=== PATIENT | male | born 1965 | race Hispanic/Latino ===

== ENCOUNTER → 2021-03-12 12:28 | Outpatient (CLI) | payer OTHER, MEDICAID, SELFPAY ==
--- NOTE | 2021-03-12 | DI.US.S_ITS ---
PROCEDURE: US ABDOMEN LIMITED INDICATIONS: HEP C POST TREATMENT TECHNIQUE: Real-time focused scanning was performed of the abdomen, with image documentation. COMPARISON: [facility], CT, ABDOMEN/PELVIS WITH CONTRAST, 03/10/2015, 16:40. [facility], US, US ABDOMEN COMPLETE, 12/15/2018, 10:08. FINDINGS: The liver is normal in size and demonstrates no focal lesions. The liver demonstrates normal overall echogenicity. IMPRESSION: Liver ultrasound within normal limits. Dictated by: Eduard Ortiz M.D. on 03/12/2021 at 13:39 Approved by: Eduard Ortiz M.D. on 03/12/2021 at 13:40
== END ==
PROVIDERS: PCP Nurse Practitioner; Referring Provider Nurse Practitioner; Visit Provider Nurse Practitioner
DX: B18.2 Chronic viral hepatitis C (principal)
CPT/HCPCS: 76705

== ENCOUNTER 2022-06-14 10:36 | Emergency (ER) | payer OTHER, MEDICAID, SELFPAY ==
[2022-06-14 10:49] VITALS: BP 141/81; PULSE 88; RESP 14; TEMP 36.7; O2SAT 100; BMI 30.9
--- NOTE | 2022-06-14 10:55 | DI.RAD.S_ITS ---
PROCEDURE: XR CHEST 1V INDICATIONS: chest pain TECHNIQUE: One view of the chest was acquired. COMPARISON: None. FINDINGS: Surgical changes and devices: None. Lungs and pleura: Patchy left basilar atelectasis. No pleural effusions or pneumothorax. Eventration of right hemidiaphragm. Mediastinum: Mediastinal contours appear normal. Heart size is normal. Bones and chest wall: No suspicious bony lesions. Overlying soft tissues appear unremarkable. IMPRESSION: Patchy left basilar atelectasis. Dictated by: Huy Cheng M.D. on 06/14/2022 at 11:31 Approved by: Huy Cheng M.D. on 06/14/2022 at 11:32
[2022-06-14 11:13] LABS: Add Manual Diff / Slide Review NO; Basophils Absolute Auto 0 /uL (0-100); Basophils Percent Auto 0.3 % (0-2); Eosinophils Absolute Auto 100 /uL (0-450); Eosinophils Percent Auto 2.1 % (2-4); Hematocrit 33.6 % (41-53); Hemoglobin 11.5 g/dL (13.5-17.5); Lymphocytes Absolute Auto 2000 /uL (1100-4500); Lymphocytes Percent Auto 32.9 % (25-40); Mean Corpuscular HGB Conc 34.2 % (30-36); Mean Corpuscular Hemoglobin 31.4 PG (26-34); Mean Corpuscular Volume 91.7 fL (80-100); Monocytes Absolute Auto 500 /uL (0-900); Monocytes Percent Auto 8.8 % (3-14); Neutrophils Absolute Auto 3400 /uL (1500-7000); Neutrophils Percent Auto 55.9 % (50-75); Platelet Count 211 X10^3/uL (150-400); Red Blood Cell Count 3.67 X10^6/uL (4.5-5.9); Red Cell Distribution Width 13.8 % (11.6-14.8); White Blood Cell Count 6.1 X10^3/uL (4.5-11.0)
[2022-06-14 11:27] LABS: Alanine Aminotransferase 30 IU/L (<50); Albumin 3.8 g/dL (3.5-5.0); Albumin Globulin Ratio 0.9 (1.0-2.8); Alkaline Phosphatase 91 U/L (38-126); Aspartate Aminotransferase 53 IU/L (17-59); BUN Creatinine Ratio 15.9 (6-22); Bilirubin Total 0.7 mg/dL (0.2-1.3); Blood Urea Nitrogen 13 mg/dL (9-20); Calcium 8.4 mg/dL (8.4-10.2); Carbon Dioxide 23 mmol/L (22-32); Chloride 104 mmol/L (98-107); Creatine Kinase 236 U/L (55-170); Estimated Glomerular Filt Rate > 60 mL/min (>60); Globulin 4.2 g/dL (1.7-4.1); Glucose 163 mg/dL (70-100); Lipase 16 U/L (23-300); Magnesium 1.9 mg/dL (1.6-2.3); Potassium 4.6 mmol/L (3.4-5.1); Sodium 140 mmol/L (137-145)
[2022-06-14 11:31] LABS: HEMOLYSIS 74 (0-50)
[2022-06-14 11:38] LABS: Troponin I < 0.012 ng/mL (0.01-0.034)
[2022-06-14 11:40] LABS: NT-proBNP (BNP-Adult 18+) 80 pg/mL (<125)
[2022-06-14 13:08] LABS: Influenza A - CEPHEID Flu A NEGATIVE (NEGATIVE); Influenza B - CEPHEID Flu B NEGATIVE (NEGATIVE); Respiratory Syncytial Virus Negative (Negative)
[2022-06-14 13:32] LABS: COVID-19 CEPHEID 4-PLEX PCR Negative (Negative)
[2022-06-14 14:17] LABS: Prothrombin Time 11.2 SECONDS (10.1-12.7)
[2022-06-14 14:19] LABS: D Dimer 971 ng/ml (<500)
[2022-06-14 14:20] LABS: PTT Partial Thromboplastin Tim 26 SECONDS (26-36)
[2022-06-14 14:27] VITALS: BP 134/76; PULSE 83; O2SAT 98
--- NOTE | 2022-06-14 14:49 | ED_ITS ---
HPI - Extremity Problem General Chief complaint: Extremity Problem,Nontraumatic Stated complaint: Woke up with both legs hurting Time Seen by Provider: 06/14/22 11:06 Source: patient Mode of arrival: Ambulatory History of Present Illness HPI Narrative: Patient is a 57-year-old male history of hypertension on amlodipine and lisinopril presenting today with bilateral lower extremities swelling. He says it has been ongoing for the last 2 days. He denies fever chills no chest pain or shortness of breath. 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 He has pain there mildly red but no significant injury. No prior history of congestive heart failure. Related Data Previous Rx's Medication Instructions Recorded furosemide 20 mg tablet (Lasix) 20 mg PO DAILY #5 tabs 06/14/22 Allergies Allergy/AdvReac Type Severity Reaction Status Date / Time No Known Drug Allergies Allergy Verified 06/14/22 10:55 Review of Systems Review of Systems Narrative: GENERAL: Denies chills,fever HEENT: Denies throat pain RESPIRATORY: Denies dyspnea, cough, wheezing CARDIOVASCULAR: Denies chest pain, palpitations GASTROINTESTINAL: Denies nausea, vomiting MUSCULOSKELETAL: See HPI SKIN: No rash, no laceration, no pruritus NEUROLOGIC: Denies weakness, dizziness, headache, numbness 8 point review of systems is negative except for those stated above and HPI Patient History Social History Smoking Status: Current every day smoker Smoking Status: Current every day smoker alcohol intake frequency: 0-2 drinks per day Substance Use Type: former substance user Exam Initial Vital Signs Initial Vital Signs: Vital Signs Temperature 98.1 F 06/14/22 10:49 Pulse Rate 88 06/14/22 10:49 Respiratory Rate 14 06/14/22 10:49 Blood Pressure 141/81 H 06/14/22 10:49 Pulse Oximetry 100 06/14/22 10:49 Oxygen Delivery Method 06/14/22 10:49 GENERAL: Alert pleasant 57-year-old male HEENT: Head atraumatic,EOMI, pupils reactive, face symmetric, moist mucous membranes CARDIOVASCULAR: Regular rate and rhythm without murmurs, rubs or gallops. RESPIRATORY: Breath sounds equal bilaterally, no wheezes rales or rhonchi. ABDOMEN: Soft, nontender. Normoactive bowel sounds all 4 quadrants. No guarding or rebound. EXTREMITIES: Normal range of motion, no clubbing . +2 pitting edema Neurovascularly intact NEUROLOGICAL: Alert and oriented x4. SKIN: Warm, dry, no laceration, no petechiae, no rashes or lesions. Minimally erythematous lower extremities Course Orders Ordered: Discontinued Medications Labetalol HCl (Labetalol 20 Mg/4 Ml Syringe) 20 mg IV NOW ONE Stop: 06/14/22 15:54 Last Admin: 06/14/22 16:01 Dose: Not Given Documented By: LAYLA Vital Signs Vital signs: Vital Signs - 8 hr 06/14/22 10:49 06/14/22 14:27 Temperature 98.1 F Pulse Rate 88 83 Respiratory Rate 14 Blood Pressure 141/81 H 134/76 Pulse Oximetry 100 98 Oxygen Delivery Method Room Air Room Air MDM - Extremity (Nontraumatic) Lab Data Result diagrams: 06/14/22 11:04 06/14/22 11:04 Labs: Lab Results 06/14/22 06/14/22 06/14/22 Range/Units 11:04 11:04 11:04 WBC 6.1 (4.5-11.0) X10^3/uL RBC 3.67 L (4.5-5.9) X10^6/uL Hgb 11.5 L (13.5-17.5) g/dL Hct 33.6 L (41-53) % MCV 91.7 (80-100) fL MCH 31.4 (26-34) PG MCHC 34.2 (30-36) % RDW 13.8 (11.6-14.8) % Plt Count 211 (150-400) X10^3/uL Neut % (Auto) 55.9 (50-75) % Lymph % (Auto) 32.9 (25-40) % Republic % (Auto) 8.8 (3-14) % Eos % (Auto) 2.1 (2-4) % Baso % (Auto) 0.3 (0-2) % Neut # (Auto) 3400 (9978-5367) /uL Lymph # (Auto) 2000 (3190-2534) /uL Republic # (Auto) 500 (0-900) /uL Eos # (Auto) 100 (0-450) /uL Baso # (Auto) 0 (0-100) /uL PT (10.1-12.7) SECONDS INR (0.9-1.3) APTT (26-36) SECONDS D-Dimer (<500) ng/ml Sodium 140 (137-145) mmol/L Potassium 4.6 (3.4-5.1) mmol/L Chloride 104 (98-107) mmol/L Carbon Dioxide 23 (22-32) mmol/L BUN 13 (9-20) mg/dL Creatinine 0.82 (0.66-1.25) mg/dL Estimated GFR > 60 (>60) mL/min BUN/Creatinine Ratio 15.9 (6-22) Glucose 163 H (70-100) mg/dL Calcium 8.4 (8.4-10.2) mg/dL Magnesium 1.9 (1.6-2.3) mg/dL Total Bilirubin 0.7 (0.2-1.3) mg/dL AST 53 (17-59) IU/L ALT 30 (<50) IU/L Alkaline Phosphatase 91 (38-126) U/L Total Creatine Kinase 236 H (55-170) U/L CK-MB (CK-2) 2.99 H (<2.37) ng/mL CK-MB (CK-2) Rel Index 1.3 L (1.5-5.0) % Troponin I < 0.012 (0.01-0.034) ng/mL NT-Pro-B Natriuret Pep 80 (<125) pg/mL Total Protein 8.0 (6.3-8.2) g/dL Albumin 3.8 (3.5-5.0) g/dL Globulin 4.2 H (1.7-4.1) g/dL Albumin/Globulin Ratio 0.9 L (1.0-2.8) Lipase 16 L (23-300) U/L SARS-CoV-2 (PCR) (Negative) Influenza A (RT-PCR) (NEGATIVE) Influenza B (RT-PCR) (NEGATIVE) RSV (PCR) (Negative) 06/14/22 06/14/22 06/14/22 Range/Units 11:40 14:00 14:00 WBC (4.5-11.0) X10^3/uL RBC (4.5-5.9) X10^6/uL Hgb (13.5-17.5) g/dL Hct (41-53) % MCV (80-100) fL MCH (26-34) PG MCHC (30-36) % RDW (11.6-14.8) % Plt Count (150-400) X10^3/uL Neut % (Auto) (50-75) % Lymph % (Auto) (25-40) % Republic % (Auto) (3-14) % Eos % (Auto) (2-4) % Baso % (Auto) (0-2) % Neut # (Auto) (6081-8300) /uL Lymph # (Auto) (4813-8465) /uL Republic # (Auto) (0-900) /uL Eos # (Auto) (0-450) /uL Baso # (Auto) (0-100) /uL PT 11.2 (10.1-12.7) SECONDS INR 1.0 (0.9-1.3) APTT 26 (26-36) SECONDS D-Dimer 971 H (<500) ng/ml Sodium (137-145) mmol/L Potassium (3.4-5.1) mmol/L Chloride (98-107) mmol/L Carbon Dioxide (22-32) mmol/L BUN (9-20) mg/dL Creatinine (0.66-1.25) mg/dL Estimated GFR (>60) mL/min BUN/Creatinine Ratio (6-22) Glucose (70-100) mg/dL Calcium (8.4-10.2) mg/dL Magnesium (1.6-2.3) mg/dL Total Bilirubin (0.2-1.3) mg/dL AST (17-59) IU/L ALT (<50) IU/L Alkaline Phosphatase (38-126) U/L Total Creatine Kinase (55-170) U/L CK-MB (CK-2) (<2.37) ng/mL CK-MB (CK-2) Rel Index (1.5-5.0) % Troponin I (0.01-0.034) ng/mL NT-Pro-B Natriuret Pep (<125) pg/mL Total Protein (6.3-8.2) g/dL Albumin (3.5-5.0) g/dL Globulin (1.7-4.1) g/dL Albumin/Globulin Ratio (1.0-2.8) Lipase (23-300) U/L SARS-CoV-2 (PCR) Negative (Negative) Influenza A (RT-PCR) Flu a negative (NEGATIVE) Influenza B (RT-PCR) Flu b negative (NEGATIVE) RSV (PCR) Negative (Negative) Imaging Data Chest x-ray: Radiologist's Impression: Signed Patient: Chelsie Mullen MR#: [id number] : 1965 Acct:[id number] Age/Sex: 57 / M Date of Service: 06/14/22 Loc: ED Accession Number: [id number] ?? Procedure: XR chest 1V Ordering Provider: Pushpa Suero D.O. PROCEDURE:? XR CHEST 1V ? INDICATIONS:? chest pain ? TECHNIQUE:? One view of the chest was acquired.? ? COMPARISON:? None. ? FINDINGS:? ? Surgical changes and devices:? None.? ? Lungs and pleura:? Patchy left basilar atelectasis.? No pleural effusions or pneumothorax.? Eventration of right hemidiaphragm. ? Mediastinum:? Mediastinal contours appear normal.? Heart size is normal.? ? Bones and chest wall:? No suspicious bony lesions.? Overlying soft tissues appear unremarkable.? ? IMPRESSION:? Patchy left basilar atelectasis. ? ? Dictated by: Huy Cheng M.D. on 06/14/2022 at 11:31 ? ? Approved by: Huy Cheng M.D. on 06/14/2022 at 11:32 ? US - DVT: Radiologist's Impression: [place] [id number] Ultrasound Report Signed Patient: Chelsie Mullen MR#: [id number] : 1965 Acct:[id number] Age/Sex: 57 / M Date of Service: 06/14/22 Loc: ED Accession Number: [id number] ?? Procedure: US periph venous low extrem bi Ordering Provider: Pushpa Suero D.O. PROCEDURE:? US PERIPH VENOUS LOW EXTREM BI ? INDICATIONS:? EDEMA; ELEVATED D-DIMER ? TECHNIQUE:? Real-time imaging, as well as color and pulse Doppler interrogation, were performed of the deep veins of both legs from the inguinal ligament to the popliteal fossa.? ? COMPARISON:? None. ? FINDINGS:? ? Right: The common femoral, femoral and popliteal veins are normally compressible, and free of intraluminal thrombus.? Color and pulse Doppler demonstrate normal phasic intravascular flow.? There is normal augmentation response to distal compression maneuver.? ? Left: The common femoral, femoral and popliteal veins are normally compressible, and free of intraluminal thrombus.? Color and pulse Doppler demonstrate normal phasic intravascular flow.? There is normal augmentation response to distal compression maneuver.? ? ? IMPRESSION:? Negative bilateral lower extremity duplex venous ultrasound for DVT. ? ? Dictated by: Huy Cheng M.D. on 06/14/2022 at 16:03 ? ? Approved by: Huy Cheng M.D. on 06/14/2022 at 16:04 ? ECG Data Interpretation: Normal sinus rhythm rate 84 VA interval 150 QRS 108 QTC 510 Q-wave noted in lead [address] elevation similar to previous E[place] [address] depressions or T-wave inversions MDM Narrative Medical decision making narrative: Patient has known hypertension and currently on amlodipine and lisinopril. He has 2 days of lower extremity edema. BNP is negative no evidence of congestive heart failure no prior history of congestive heart failure. D-dimer was mildly elevated at 900 but she has a negative bilateral ultrasound for DVT. At this time swelling may or may not be causing by amlodipine will stop his amlodipine have him follow-up with his primary care provider in regards to his blood pressure medication. He is not hypertensive here is no evidence of end-organ damage. We will also start him on Lasix to help with the swelling. At this time he does not meet admission criteria. Discharge Plan Departure Patient Disposition: Home Clinical Impression: Lower extremity edema Instructions: DI for Dependent Edema Activity Restrictions/Additional Instructions: *You have been diagnosed with lower extremity edema *What to do: At this time let us stop amlodipine it can cause swelling in her legs. You will need to talk about your blood pressure control and medication with your primary care provider. Please monitor your blood pressure at home check once daily. *Continue to take medications as directed STOP AMLODIPINE Start Lasix 20 mg once a day for 4 days *Follow up with your primary care provider in 2-3 days or call [phone] *Return to ER if you should have increasing swelling shortness of breath chest pain or any new, worsening or concerning symptoms Prescriptions: New furosemide [Lasix] 20 mg tablet 20 mg PO DAILY Qty: 5 0RF Referrals: Domo Wilburn ARNP [Primary Care Provider] - Visit Report Forms: Patient Portal/API
--- NOTE | 2022-06-14 15:06 | DI.US.S_ITS ---
PROCEDURE: US PERIPH VENOUS LOW EXTREM BI INDICATIONS: EDEMA; ELEVATED D-DIMER TECHNIQUE: Real-time imaging, as well as color and pulse Doppler interrogation, were performed of the deep veins of both legs from the inguinal ligament to the popliteal fossa. COMPARISON: None. FINDINGS: Right: The common femoral, femoral and popliteal veins are normally compressible, and free of intraluminal thrombus. Color and pulse Doppler demonstrate normal phasic intravascular flow. There is normal augmentation response to distal compression maneuver. Left: The common femoral, femoral and popliteal veins are normally compressible, and free of intraluminal thrombus. Color and pulse Doppler demonstrate normal phasic intravascular flow. There is normal augmentation response to distal compression maneuver. IMPRESSION: Negative bilateral lower extremity duplex venous ultrasound for DVT. Dictated by: Huy Cheng M.D. on 06/14/2022 at 16:03 Approved by: Huy Cheng M.D. on 06/14/2022 at 16:04
[2022-06-14 16:04] VITALS: BP 123/74; PULSE 80; RESP 18; O2SAT 98
[2022-06-14 18:45] LABS: CKMB % Relative Index 1.3 % (1.5-5.0); Creatine Kinase MB 2.99 ng/mL (<2.37)
== END 2022-06-14 16:17 | disposition home or self-care (01) ==
PROVIDERS: Emergency Provider Emergency Medicine; PCP Nurse Practitioner
DX: R60.9 Edema, unspecified (principal); R07.9 Chest pain, unspecified; Z20.822 Contact with and (suspected) exposure to COVID-19
CPT/HCPCS: 0241U; 36415; 71045; 80053; 82550; 82553; 83690; 83735; 83880; 84484; 85025; 85379; 85610; 85730; 93005; 93010; 93970; 99284